=== PATIENT | male | born 1990 | race Caucasian/White ===

== ENCOUNTER 2016-08-07 15:57 | Inpatient (IN) | payer OTHER ==
[~2016-08-07] VITALS: Ht 170.2 cm; Wt 54.0 kg
[~2016-08-07 15:57] MED LIST: FERROUS SULFAT325 M1 PO; INSULIN; LEVEMIR FL100 UNIT/M SC; NOVOLOG PE100 UNITS/ SC; OXYCODONE HCL E10 MG PO; OXYCONTIN CR10 MG PO; ZOFRAN ODT4 MG PO; [UNRECOGNIZED DRUG - OTHER] SC; [UNRECOGNIZED DRUG - SUPPLY] SC
[2016-08-07 16:45] VITALS: BP 127/79
[2016-08-08 03:19] VITALS: BP 148/90
[2016-08-08 06:42] VITALS: BP 131/91
[2016-08-08 10:46] VITALS: BP 149/98
--- NOTE | 2016-08-08 10:50 | History & Physical Report ---
Information Source Information Source: Self Reliability: Good History Chief Complaint NAUSEA AND VOMITING History of Present Illness Patient is a 26 year old male with a pmh of diabetes type 1 and opioid abuse. Patient is currently homeless and does not have access to regular insulin. Patient additionally does not have the means to affor his insulin either. Patient in this instance went off his insulin for 2 days and the patient started to develop symptoms that in the past were cues that his blood sugars were becoming increasingly elevated. Patient started to develop sever nausea and vomiting and eventually abdominal pain. Patient was brought to [facility] where the patient was seen to have a blood sugar of 800, with ketone bodies. Patient was treated with insulin drip and iv fluids. Due to lack of medical beds the patient was transferred to [facility]. Patient upon arrival was found to have a blood sugar of 260 and was on 10 units of insulin. As per our own insulin protocol patient was able to reduce his insulin requirment and currently blood sugar is seen to be 160. Patient History 1. DKA (diabetic ketoacidoses) 2. Nausea 3. Illicit drug use Social History Patient is currently homeless, estranged from family. He does not drink but does smoke cigarettes and has a history of opioid abuse for which he currently claims that he has not used in the recent past few months. Family History Family history was reviewed; no changes noted. Medications and Allergies Medications Home Medications Lantus 20 units qhs Sliding scale coverage with Novolog Current Medications Sig/Ian Start time Last Medication Dose Route Stop Time Status Admin Influenza Virus 0.5 ML 0900 08/08 0900 AC Vaccine IM 08/08 1600 Pantoprazole Sodium 40 MG DAILY@0600 08/08 0600 AC IV Insulin Glargine 20 UNITS QHS 08/07 2100 AC SC Dextrose/Sodium 1,000 ML ASDIRECTED 08/07 1830 AC Chloride/Electrolyt IV Dextrose 25 ML ASDIRECTED PRN 08/07 1815 AC IV Insulin Human Regular 100 UNITS ASDIRECTED 08/07 1815 AC Sodium Chloride 100 ML IV Insulin Human Regular See Dose ASDIRECTED 08/07 1815 AC Insts (1) IV Sodium Chloride 100 ML .FOR AFTER HOURS 08/07 1815 AC IV Enoxaparin Sodium 40 MG QAM 08/07 1800 AC SC Ketorolac 30 MG Q6H PRN 08/07 1800 AC Tromethamine IV Lorazepam 0.5 MG Q4H PRN 08/07 1800 AC IV Morphine Sulfate 1 MG Q4H PRN 08/07 1800 AC IV Dose Instructions: (1)Insulin Human Regular: FOR AFTER HOURS USE TO MIX INSULIN INFUSION ONLY Allergies Coded Allergies: Acetaminophen (From TYLENOL) (Intermediate, NAUSATED AND ITCHY 09/24/15) Review of Systems Constitutional Weakness, Malaise. Denies: Fever, Chills, Sweats, Other. Eyes Denies: Pain, Vision Change, Conjunctival Inflammation, Eyelid Inflammation, Redness, Other. ENT Denies: Ear Pain, Ear Discharge, Nose Pain, Nasal Discharge, Nasal Congestion, Mouth Pain, Mouth Swelling, Throat Pain, Throat Swelling, Other. Respiratory Denies: Cough, Dry, SOB w/exertion, Wheezing, Hemoptysis, Pleuritic Pain, Sputum , Other. Cardiovascular Denies: Chest Pain, Palpitations, Orthopnea, PND, Edema, Light-headedness, Other. Gastrointestinal Nausea, Vomiting, Abdominal Pain. Denies: Diarrhea, Constipation, Melena, Hematochezia, Other. Genitourinary Denies: Dysuria, Frequency, Incontinence, Hematuria, Retention, Other. Musculoskeletal Denies: Neck Pain, Shoulder Pain, Arm Pain, Back Pain, Hand Pain, Leg Pain, Foot Pain, Other. Skin Other (chronic dry skin dermatitis ). Denies: Rash, Lesions, Jaundice, Bruising. Neurological Denies: Weakness, Numbness, Incoordination, Change in speech, Confusion, Seizures, Other. Physical Exam Vital Signs / I&Os Vital Signs Date Time Temp Pulse Resp B/P Pulse O2 O2 Flow FiO2 Ox Delivery Rate 08/07 1645 98.2 102 18 127/79 100 Room Air General Appearance Alert, Oriented X3, No acute distress HEENT Normal exam, EOMI, Moist mucous membranes Lungs Clear to auscultation, Normal air movement Cardiovascular Regular rate and rhythm, Normal S1 and S2, No murmurs, gallops, rubs Abdomen Soft, No tenderness, No guarding Extremities No clubbing, No edema, Normal pulses, No tenderness, Strength = upper ext's Skin - evidence of ichthyosis vulgaris Neurological Normal exam, Normal speech, Normal tone, Sensation intact, Reflexes 2+ and equal, Cranial nerves intact, No lateralizing signs Psych/Mental Status Mental status normal, Mood normal, Confused LAB Results Laboratory Tests 08/07 08/08 1730 0450 Chemistry Plasma Sodium (136 - 145 mmol/L) 138 137 Plasma Potassium (3.5 - 5.1 mmol/L) 3.9 4.1 Plasma Chloride (98 - 107 mmol/L) 101 102 CO2 (Enzymatic) (21 - 32 mmol/L) 28 25 BUN (7 - 18 mg/dL) 19 21 Creatinine (0.6 - 1.3 mg/dL) 1.1 0.8 Est GFR ( Amer) (mL/min) >60 >60 Est GFR (Non-Af Amer) (mL/min) >60 >60 Glucose (70 - 110 mg/dL) 184 231 Plasma Calcium (8.5 - 10.1 mg/dL) 7.7 7.7 Plasma Magnesium (1.8 - 2.4 mg/dL) 2.2 Total Bilirubin (0.0 - 1.0 mg/dL) 0.3 0.2 AST (15 - 37 U/L) 630 527 ALT (12 - 78 U/L) 676 566 Alkaline Phosphatase (46 - 116 U/L) 222 204 Total Protein (6.4 - 8.2 g/dL) 6.5 5.9 Albumin (3.3 - 5.0 g/dL) 2.5 2.2 Hematology WBC (4.5 - 11.5 K/uL) 3.9 RBC (4.50 - 5.90 M/uL) 3.23 Hgb (13.5 - 17.5 gm/dL) 7.3 Hct (41.0 - 53.0 %) 23.2 MCV (80 - 100 fL) 72 MCH (26 - 34 pg) 23 RDW (11.6 - 14.8 %) 19.2 Neut % (Auto) (50 - 75 %) 51.0 Lymph % (Auto) (25 - 40 %) 38.0 [place] % (Auto) (3 - 14 %) 8.6 Eos % (Auto) (0 - 4 %) 1.5 Baso % (Auto) (0 - 2 %) 0.9 Plt Count, EDTA (150 - 400 K/uL) 346 PUBS MCHC (31 - 37 g/dL) 32 Microbiology Date/Time Procedure - Status Source Growth 08/08 0001 MRSA Screen - RECD NASAL 08/07 2144 Escherichia coli Shiga Toxins EIA - RECD STOOL 03/07 2145 Campylobacter Culture - RECD STOOL 08/07 2144 Salmonella/Shigella Culture - RECD STOOL 08/07 2144 Clostridium difficile Toxin A & B - COMP STOOL 08/07 2144 Specimen Source - COMP STOOL 08/07 2144 Stool Leukocytes - COMP STOOL Assessment and Plan Problem List 1. DKA (diabetic ketoacidoses) Plan - pt was seen to have DKA at [facility], patient had evidence of acidosis, low bicorbonate and elevated anion gap - Patient was treated with insulin drip and subsequently his anion gap closed and the low bicarbonate resolved - Patient upon arrival to [facility], patients blood sugars were relatively normalized- 260 and patients electrolytes defiencies were corrected - patient was initially on insulin drip at 10 units per hour on arrival, patient when his blood sugar was 265 was placed on .5 units per hour and switched to D5NS - Pt was startd on his home dose of insulin and his blood sugars remained relatively stable overnight - Pt additionally was consuming a lot of carbohydrates so his blood sugars have been occassionally inconsistent 2. Diabetes Plan - will resume lantus 25 units qhs - sliding scale coverage during the day - carb consistent meals 3. Arm pain Plan - resolved 4. Illicit drug use Status Chronic Onset Date Unknown Plan - pt swears that he has not been using heroin recently - unsure to as whether that is true due to inconclusive drug screen 5. Anemia Status Chronic Onset Date Unknown Plan - patient has not been taking his iron supplementation appropriately - pt asked to resume iron and to follow up with his pmd
[2016-08-08] MEDS ORDERED: FERROUS SULFAT325 M1 PO (14:34)
[2016-08-08] MEDS ORDERED: LEVEMIR FL100 UNIT/M SC (14:34)
[2016-08-08] MEDS ORDERED: NOVOLOG PE100 UNITS/ SC (14:34)
[2016-08-08] MEDS ORDERED: [UNRECOGNIZED DRUG - SUPPLY] SC (14:36)
[2016-08-08] MEDS ORDERED: [UNRECOGNIZED DRUG - OTHER] SC (14:37)
[2016-08-08] MEDS ORDERED: [UNRECOGNIZED DRUG - SUPPLY] SC (14:38)
[2016-08-08] MEDS ORDERED: [UNRECOGNIZED DRUG - SUPPLY] SC (14:39)
[2016-08-08] MEDS ORDERED: OXYCODONE HCL E10 MG PO (14:40)
--- NOTE | 2016-08-08 14:44 | Provider's Discharge Care Plan ---
Problem, Goal, Plan Problem List 1. DKA (diabetic ketoacidoses) Instructions: Take meds as directed, - follow up with your pmd 2. Diabetes Instructions: Take meds as directed, -stick to low carb diet if possible 3. Emesis, persistent Instructions: - keep blood sugars under control
--- NOTE | 2016-08-08 15:15 | Progress Note ---
Subjective General Pt seen and examined. Patients blood sugars have normalized overnight and patient is no longer in DKA. Patient will be discharged later today. Constitutional Denies: Fever, Chills, Sweats, Weakness, Malaise, Other. Eyes Denies: Pain, Vision Change, Conjunctival Inflammation, Eyelid Inflammation, Redness, Other. ENT Denies: Ear Pain, Ear Discharge, Nose Pain, Nasal Discharge, Nasal Congestion, Mouth Pain, Mouth Swelling, Throat Pain, Throat Swelling, Other. Respiratory Denies: Cough, Dry, SOB w/exertion, Wheezing, Hemoptysis, Pleuritic Pain, Sputum , Other. Cardiovascular Denies: Chest Pain, Palpitations, Orthopnea, PND, Edema, Light-headedness, Other. Gastrointestinal Abdominal Pain. Denies: Nausea, Vomiting, Diarrhea, Constipation, Melena, Hematochezia, Other. Genitourinary Denies: Dysuria, Frequency, Incontinence, Hematuria, Retention, Other. Musculoskeletal Denies: Neck Pain, Shoulder Pain, Arm Pain, Back Pain, Hand Pain, Leg Pain, Foot Pain, Other. Skin Denies: Rash, Lesions, Jaundice, Bruising, Other. Neurological Denies: Weakness, Numbness, Incoordination, Change in speech, Confusion, Seizures, Other. Physical Exam Vital Signs / I&Os Vital Signs Date Time Temp Pulse Resp B/P Pulse O2 O2 Flow FiO2 Ox Delivery Rate 08/08 1046 98.4 92 18 149/98 100 Room Air 08/08 0642 98.2 93 18 131/91 100 Room Air 08/08 0319 97.5 92 18 148/90 100 Room Air 08/07 1645 98.2 102 18 127/79 100 Room Air I&O 08/07 0800 08/07 1600 08/08 0000 Intake Total Output Total 550 Balance -550 General Appearance Alert, Oriented X3, No acute distress HEENT Normal exam, PERRLA, EOMI, Moist mucous membranes Lungs Clear to auscultation, Normal air movement Neck No JVD, No masses, No thyromegaly, No lymphadenopathy, 2+ carotid pulse wo bruit Cardiovascular Regular rate and rhythm, Normal S1 and S2 Abdomen Soft, No tenderness, No guarding, No rebound Extremities No cyanosis, No clubbing, No edema, Normal pulses, No tenderness, Strength = upper ext's, Strength = lower ext's Skin No Breakdown, No Significant Lesions Neurological Normal speech, Normal tone, Sensation intact, Cranial nerves intact , Strength 5/5 x4 ext's LAB Results Laboratory Tests 08/07 08/08 1730 0450 Chemistry Plasma Sodium (136 - 145 mmol/L) 138 137 Plasma Potassium (3.5 - 5.1 mmol/L) 3.9 4.1 Plasma Chloride (98 - 107 mmol/L) 101 102 CO2 (Enzymatic) (21 - 32 mmol/L) 28 25 BUN (7 - 18 mg/dL) 19 21 Creatinine (0.6 - 1.3 mg/dL) 1.1 0.8 Est GFR ( Amer) (mL/min) >60 >60 Est GFR (Non-Af Amer) (mL/min) >60 >60 Glucose (70 - 110 mg/dL) 184 231 Plasma Calcium (8.5 - 10.1 mg/dL) 7.7 7.7 Plasma Magnesium (1.8 - 2.4 mg/dL) 2.2 Total Bilirubin (0.0 - 1.0 mg/dL) 0.3 0.2 AST (15 - 37 U/L) 630 527 ALT (12 - 78 U/L) 676 566 Alkaline Phosphatase (46 - 116 U/L) 222 204 Total Protein (6.4 - 8.2 g/dL) 6.5 5.9 Albumin (3.3 - 5.0 g/dL) 2.5 2.2 Hematology WBC (4.5 - 11.5 K/uL) 3.9 RBC (4.50 - 5.90 M/uL) 3.23 Hgb (13.5 - 17.5 gm/dL) 7.3 Hct (41.0 - 53.0 %) 23.2 MCV (80 - 100 fL) 72 MCH (26 - 34 pg) 23 RDW (11.6 - 14.8 %) 19.2 Neut % (Auto) (50 - 75 %) 51.0 Lymph % (Auto) (25 - 40 %) 38.0 [place] % (Auto) (3 - 14 %) 8.6 Eos % (Auto) (0 - 4 %) 1.5 Baso % (Auto) (0 - 2 %) 0.9 Plt Count, EDTA (150 - 400 K/uL) 346 PUBS MCHC (31 - 37 g/dL) 32 Microbiology Date/Time Procedure - Status Source Growth 08/08 0001 MRSA Screen - RECD NASAL 08/07 2144 Escherichia coli Shiga Toxins EIA - RECD STOOL 08/07 2144 Campylobacter Culture - RECD STOOL 08/07 2144 Salmonella/Shigella Culture - RECD STOOL 08/07 2144 Clostridium difficile Toxin A & B - COMP STOOL 08/07 2144 Specimen Source - COMP STOOL 08/07 2144 Stool Leukocytes - COMP STOOL Assessment and Plan Problem List 1. DKA (diabetic ketoacidoses) Plan - resolved - blood sugars are down to patients baseline - the aberrations in consistency are secondary to increased po intake on the patients behalf 2. Diabetes Plan - pt will be discharged with prescriptions for lantus 20 units qhs as well as novolog 8 units TID - pt will follow up with his pmd - arrangements have been made for patient to get an appointment 3. Emesis, persistent Plan - resolved
--- NOTE | 2016-08-08 15:17 | Discharge Summary ---
Discharge Summary Report Admit Date 08/07/16 Discharge Date 08/08/16 Admission Diagnosis DKA Discharge Diagnosis DKA resolved Brief History Patient is a 26 year old male with a pmh of diabetes type 1 and opioid abuse. Patient is currently homeless and does not have access to regular insulin. Patient additionally does not have the means to affor his insulin either. Patient in this instance went off his insulin for 2 days and the patient started to develop symptoms that in the past were cues that his blood sugars were becoming increasingly elevated. Patient started to develop sever nausea and vomiting and eventually abdominal pain. Patient was brought to [facility] where the patient was seen to have a blood sugar of 800, with ketone bodies. Patient was treated with insulin drip and iv fluids. Due to lack of medical beds the patient was transferred to [facility]. Patient upon arrival was found to have a blood sugar of 260 and was on 10 units of insulin. As per our own insulin protocol patient was able to reduce his insulin requirment and currently blood sugar is seen to be 160. Hospital Course Patient was admitted seen to have relatively normal blood sugars. Labs were obtained and patients anion gap closed and his bicarbonate returned to normal. Patient was treated with his home dose of insulin and patient was able to show that he can achieve normal blood sugars. Patient at this time is stable for discharge. Patient recieved prescriptions for all his insulin supplies, had appointments made for prescription refills, and was given resources to help with his lack of housing. Patient claimed that he would be amenable to pursuing everything we have arranged for him. General Appearance Alert, Oriented X3, No acute distress HEENT PERRLA, EOMI, Mucous membran moist/pink Lungs Normal air movement Cardiovascular Normal S1, Normal S2, No murmurs Abdomen Soft, No hepatospenomegaly, No masses Skin No Breakdown, No Significant Lesions Lab/Imaging Laboratory Tests 08/07 08/08 1730 0450 Chemistry Plasma Sodium (136 - 145 mmol/L) 138 137 Plasma Potassium (3.5 - 5.1 mmol/L) 3.9 4.1 Plasma Chloride (98 - 107 mmol/L) 101 102 CO2 (Enzymatic) (21 - 32 mmol/L) 28 25 BUN (7 - 18 mg/dL) 19 21 Creatinine (0.6 - 1.3 mg/dL) 1.1 0.8 Est GFR ( Amer) (mL/min) >60 >60 Est GFR (Non-Af Amer) (mL/min) >60 >60 Glucose (70 - 110 mg/dL) 184 231 Plasma Calcium (8.5 - 10.1 mg/dL) 7.7 7.7 Plasma Magnesium (1.8 - 2.4 mg/dL) 2.2 Total Bilirubin (0.0 - 1.0 mg/dL) 0.3 0.2 AST (15 - 37 U/L) 630 527 ALT (12 - 78 U/L) 676 566 Alkaline Phosphatase (46 - 116 U/L) 222 204 Total Protein (6.4 - 8.2 g/dL) 6.5 5.9 Albumin (3.3 - 5.0 g/dL) 2.5 2.2 Hematology WBC (4.5 - 11.5 K/uL) 3.9 RBC (4.50 - 5.90 M/uL) 3.23 Hgb (13.5 - 17.5 gm/dL) 7.3 Hct (41.0 - 53.0 %) 23.2 MCV (80 - 100 fL) 72 MCH (26 - 34 pg) 23 RDW (11.6 - 14.8 %) 19.2 Neut % (Auto) (50 - 75 %) 51.0 Lymph % (Auto) (25 - 40 %) 38.0 [place] % (Auto) (3 - 14 %) 8.6 Eos % (Auto) (0 - 4 %) 1.5 Baso % (Auto) (0 - 2 %) 0.9 Plt Count, EDTA (150 - 400 K/uL) 346 PUBS MCHC (31 - 37 g/dL) 32 Microbiology Date/Time Procedure - Status Source Growth 08/08 0001 MRSA Screen - RECD NASAL 08/07 2144 Escherichia coli Shiga Toxins EIA - RECD STOOL 08/07 2144 Campylobacter Culture - RECD STOOL 08/07 2144 Salmonella/Shigella Culture - RECD STOOL 08/07 2144 Clostridium difficile Toxin A & B - COMP STOOL 08/07 2144 Specimen Source - COMP STOOL 08/07 2144 Stool Leukocytes - COMP STOOL Discharge Instructions/Meds - follow up with your pmd - take medications as prescribed
== END 2016-08-08 15:00 | disposition home or self-care (01) | DRG 420 ==
LOC: TRANS SRH 15:57 → CC SRH 16:39 → TRANS SRH 16:39 → CC SRH 16:39
PROVIDERS: ADMIT Internal Medicine
PROC: 3E0234Z Introduction of Serum, Toxoid and Vaccine into Muscle, Percutaneous Approach (ICD-10-PCS; principal; 2016-08-08)
DX: E10.10 Type 1 diabetes mellitus with ketoacidosis without coma (principal); R11.2 Nausea with vomiting, unspecified; T38.3X6A Underdosing of insulin and oral hypoglycemic [antidiabetic] drugs, initial encounter; Z91.120 Patient's intentional underdosing of medication regimen due to financial hardship; Z23 Encounter for immunization; D50.9 Iron deficiency anemia, unspecified; F11.10 Opioid abuse, uncomplicated; Z59.0 Homelessness
CPT/HCPCS: 29257; 90098; 90100; 90112; 90455; 91672; 92132; 92720; 95059; 99262

== ENCOUNTER 2016-10-15 16:52 | Inpatient (IN) | payer OTHER ==
[~2016-10-15] VITALS: Ht 170.2 cm; Wt 55.5 kg
[~2016-10-15 16:52] MED LIST changes: +[UNRECOGNIZED DRUG - OTHER] SC; +[UNRECOGNIZED DRUG - SUPPLY] SC; +[UNRECOGNIZED DRUG - SUPPLY] SC; +[UNRECOGNIZED DRUG - SUPPLY] SC
[2016-10-15 17:32] VITALS: BP 157/100
[2016-10-15 19:00] VITALS: BP 126/75
[2016-10-15 20:05] VITALS: BP 108/59
--- NOTE | 2016-10-15 20:08 | Progress Note ---
Subjective General Admission History and Physical Examination Patient Name: Brendan Bowie Patient ID: [id number] Admission Date: October 15, 2016 Primary Care Provider: Krishan Attending Physician: Nehemias Kahn M.D. Admitting Physician: Nirav Cabrera M.D. 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 Abdominal pain Coughing History of Present Illness: This is a 26 year old male with a pmh of diabetes type 1, opioid abuse and homeless. Patient seen earlier today at [facility] ER. Patient is limited resources and therefore his insulins are not available on a consistent basis. Patient ended up going into the [facility] emergency department. Patient was found there to have a blood sugar of 1000 1200. However, not seemingly in ketoacidosis. Bicarbonate was in the 20s. Undetermined ketones. Patient appeared to be dehydrated and unkept. Due to limitations in [facility]. Patient was subsequently transferred to [facility] for inpatient care. Patient is transfered to the [facility] CCU on insulin drip. Upon arrival, patient had blood sugars of 320. Insulin rate of 10. Patient was admitted with hyper glycemia, hyper ketosis and dehydration. Patient is admitted to CCU observation. He states he has not felt well, not eating well. Patient has productive cough. Patient does have a history of smoking use and uses marijuana. Previous opioid use. Patient has minimal resource. Therefore, his inability to monitor his blood sugars is been less than adequate. Patient has reports of recent nausea and vomiting. Patient also reported of abdominal pain. Patient upon arrival was found to have a blood sugar of 320 and was on 10 units of insulin. Her insulin protocol p insulin rate was reduced to 5 units IV per hour. Recheck insulin and one hour. PAST MEDICAL HISTORY Illnesses: Insulin-dependent diabetes. 1 Hypertension Hyperlipidemia Back pain Homeless Allergies: NKDA Medications: Lantus 20 units SC Humalog sliding scale Surgery: Right arm Hospitalizations: 2015. Diabetic ketoacidosis August diabetic ketoacidosis FAMILY HISTORY Parents: 1. Father, hypercholesterol, hypertension 2. Mother: Unsure of medical history SOCIAL HISTORY 1. Marital Status: Single 2. Congregation: unknown 3. Education: unknown 4. Employment History: Disability 5. Occupational health exposures: Unknown HABITS 1. Tobacco: Patient smoked intermittently over the past 25 years, currently smoking 1.5 ppd. 2. Drugs: hx of opiod use and marijuana 3. Alcohol: Unknown 4. Caffeine: coffee HEALTH SUPERVISION Item/Test unknown 1. PCP, unknown IMMUNIZATIONS: Up-to-date ADVANCED DIRECTIVES: 1. Advanced directive; none 2. POLST: None 3. Code Status: FULL CODE; call father 4. Durable Power; Not known 5. Donor card: Unknown REVIEW OF SYSTEMS Remarkable for those things stated in the history of present illness and past medical history. Seventeen point review of system completed with the following notable findings: Constitutional Weakness, Malaise. Denies: Chills, Sweats. Eyes Denies: Vision Change. ENT Denies: Ear Discharge, Nasal Discharge, Throat Pain. Respiratory Denies: SOB w/exertion, Wheezing. Cardiovascular Denies: Palpitations, PND, Edema. Gastrointestinal Nausea, Abdominal Pain. Denies: Diarrhea, Hematochezia. Genitourinary Other (dysuria). Musculoskeletal Denies: Arm Pain. Neurological Denies: Change in speech, Confusion, Seizures. Physical Exam Vital Signs / I&Os Vital Signs Date Time Temp Pulse Resp B/P Pulse O2 O2 Flow FiO2 Ox Delivery Rate 10/15 2210 94 12 112/62 10/15 2112 104 12 103/73 10/15 2049 97 10/15 204 Room Air 10/15 2004 109 14 108/59 100 10/15 1900 101 16 126/75 100 10/15 1735 97.7 10/16 1731 98 20 157/100 General Appearance Oriented X3, Cooperative, Thin, frail, unkept bearded HEENT Atraumatic, EOMI Lungs Clear to auscultation, Normal air movement Neck No JVD, No masses Cardiovascular Regular rate and rhythm, Normal S1 and S2 Abdomen Soft, No tenderness Extremities Normal pulses, No tenderness Skin No Rashes, No Breakdown, scarring noted in the upper extremity. Neurological Normal speech Psych/Mental Status Mood normal LAB Results Laboratory Tests 10/15 Chemistry Phosphorus (2.5 - 4.9 mg/dL) 3.0 Prealbumin Pending Amylase (25 - 115 U/L) 7 Hematology WBC (4.5 - 11.5 K/uL) 9.3 RBC (4.50 - 5.90 M/uL) 4.52 Hgb (13.5 - 17.5 gm/dL) 11.1 Hct (41.0 - 53.0 %) 33.4 MCV (80 - 100 fL) 74 MCH (26 - 34 pg) 25 RDW (11.6 - 14.8 %) 17.3 Neut % (Auto) (50 - 75 %) 60.7 Lymph % (Auto) (25 - 40 %) 31.1 [place] % (Auto) (3 - 14 %) 6.4 Eos % (Auto) (0 - 4 %) 1.0 Baso % (Auto) (0 - 2 %) 0.8 Plt Count, EDTA (150 - 400 K/uL) 330 PUBS MCHC (31 - 37 g/dL) 33 Toxicology Acetone, Qual (NEGATIVE) Pending Urine Acetone Level (NEGATIVE) Pending Microbiology Date/Time Procedure - Status Source Growth 10/15 2029 Blood Culture - RECD BLOOD 10/15 1953 Blood Culture - ORD BLOOD 10/16 1739 MRSA Screen - RECD NASAL Assessment and Plan Problem List 1. Diabetes Plan Diabetic transfer from [facility] emergency Department. (Patient is homeless and stopped using insulin due to exhausted resources). Patient was found initially with a CO2 of 15. Not necessarily in DKA with a bicarbonate 23. Ketone bodies were minimal. Patient was started on a 10 unit per hour drip of insulin. This was titrated down with responding blood sugars. The patient was given his Lantus 10 units 1 this evening. Patient was fed. K and phosphates were reviewed and evaluated. Labs including CBC, CMP, as phosphate pre-Albumin Appears to be malnourished. Ordering a nutritional consult plus physical therapy in the AM 2. Nausea Plan Nausea admission. Likely related to elevated blood sugars. Patient's mental status was normal. We'll give ondansetron as needed. 3. Nicotine dependence Status Chronic Onset Date Unknown Plan Provide patient with tobacco cessation programs Nicotine patch was placed. 4. Dehydration Plan Dehydration is prominent, Given the Poor dietary factors, less than adequate diet. TI one half normal saline at 50 cc an hour. Normalized blood sugars Follow potassium phosphate levels. Maintain insulin drip until her sugars at 150, stop the drip. Continue with the D5 normal saline. Increase by mouth intake Lantus, 20 units tonight Hemoglobin A1c, lipid profile Current status: Guarded, unstable Anticipated discharge date: Anticipated discharge in 2-3 day Anticipated discharge placement: Home Patient care time: Time spent in chart review, patient interview, physical exam, CPOE, and care documentation: 70 minutes Visit to patient today: 1 Complexity of care: moderate Initial patient evaluation: Emergency department DVT prophylaxis: Mechanical; GI ppx , pantoprazole 40 mg IV DVT Lovenox 40 mg sc E&M Codes Admission: Obsv-Comp/High/[id number]
[2016-10-15 21:13] VITALS: BP 103/73
--- NOTE | 2016-10-15 21:58 | DIAGNOSTIC IMAGING REPORT ---
PROCEDURE: XR CHEST 1 VIEW INDICATION: cough with sputum production TECHNIQUE: Single view chest. 2015 hours COMPARISON: None FINDINGS: Cardiomediastinal contour and central vessels are normal. Lungs demonstrate mildly coarse interstitial markings but no focal consolidation, effusion, or pneumothorax. Osseous structures are intact. IMPRESSION: 1. No acute process. 2. Coarse interstitial markings raising possibility of early emphysema.
[2016-10-15 22:11] VITALS: BP 112/62
[2016-10-15 23:10] VITALS: BP 126/64
[2016-10-16] VITALS (23 sets, daily range): BP systolic 113–160; BP diastolic 57–98
--- NOTE | 2016-10-16 07:15 | Progress Note ---
Subjective General This is a 26 year old male with a pmh of diabetes type 1, opioid abuse and homeless. Patient seen earlier today at [facility] ER. Patient is limited resources and therefore his insulins are not available on a consistent basis. Patient ended up going into the [facility] emergency department. Patient was found there to have a blood sugar of 1000 1200. However, not seemingly in ketoacidosis. Bicarbonate was in the 20s. Undetermined ketones. Patient appeared to be dehydrated and unkept. Due to limitations in [facility]. Patient was subsequently transferred to [facility] for inpatient care. Patient is transfered to the [facility] CCU on insulin drip. Upon arrival, patient had blood sugars of 320. Insulin rate of 10. Patient was admitted with hyper glycemia, hyper ketosis and dehydration. Patient is admitted to CCU observation. Still has back pain and Abd. Pain, but controlled, no nausea vomiting, had BM yesterday, no fever chills, no cp or dyspnea, ROS: GI: positive for Abd. pain, negative for nausea, vomiting MKS: positive for back pain Constitional: negative for fever, chills Physical Exam Vital Signs / I&Os Vital Signs Date Time Temp Pulse Resp B/P Pulse O2 O2 Flow FiO2 Ox Delivery Rate 10/16 0611 85 11 137/87 98 Room Air 10/16 0510 97.7 89 15 128/73 98 10/16 0400 89 10 116/61 98 Room Air 10/16 0310 93 12 113/67 99 Room Air 10/16 0210 97.7 84 11 128/79 98 Room Air 10/16 0100 122/69 10/16 0010 88 11 114/57 98 10/15 2310 97.7 94 14 126/64 100 Room Air 10/15 2211 94 12 112/62 10/153 104 12 103/73 10/15 2050 97 10/15 2045 Room Air 10/15 2005 109 14 108/59 100 10/15 1900 101 16 126/75 100 10/15 1735 97.7 10/15 1732 98 20 157/100 I&O 10/16 0000 10/15 1600 10/15 0800 Intake Total 600 Output Total 1150 Balance -550 General Appearance No acute distress Lungs Clear to auscultation Cardiovascular Regular rate and rhythm, Normal S1 and S2, No murmurs, gallops, rubs Abdomen Soft, tendern, Bowel sounds hypoactive Extremities No edema Skin No Significant Lesions (chronic skin changes in legs) Neurological Normal speech Psych/Mental Status Mental status normal Assessment and Plan Problem List 1. Diabetes Plan patient is in process of getting perperal IV, switch the IV insulin to high level sliding scale 2. Dehydration Plan much better with IV hydration 3. Anemia Status Chronic Onset Date Unknown Plan stable will monitor 4. Emesis, persistent Plan controlled now 5. Abnormal TSH Plan will check Free T4
--- NOTE | 2016-10-16 07:15 | Progress Note ---
Subjective General This is a 26 year old male with a pmh of diabetes type 1, opioid abuse and homeless. Patient seen earlier today at [facility] ER. Patient is limited resources and therefore his insulins are not available on a consistent basis. Patient ended up going into the [facility] emergency department. Patient was found there to have a blood sugar of 1000 1200. However, not seemingly in ketoacidosis. Bicarbonate was in the 20s. Undetermined ketones. Patient appeared to be dehydrated and unkept. Due to limitations in [facility]. Patient was subsequently transferred to [facility] for inpatient care. Patient is transfered to the [facility] CCU on insulin drip. Upon arrival, patient had blood sugars of 320. Insulin rate of 10. Patient was admitted with hyper glycemia, hyper ketosis and dehydration. Patient is admitted to CCU observation. Still has back pain and Abd. Pain, but controlled, no nausea vomiting, had BM yesterday, no fever chills, no cp or dyspnea, ROS: GI: positive for Abd. pain, negative for nausea, vomiting MKS: positive for back pain Constitional: negative for fever, chills Physical Exam Vital Signs / I&Os Vital Signs Date Time Temp Pulse Resp B/P Pulse O2 O2 Flow FiO2 Ox Delivery Rate 10/16 0611 85 11 137/87 98 Room Air 10/16 0510 97.7 89 15 128/73 98 10/16 0400 89 10 116/61 98 Room Air 10/16 0310 93 12 113/67 99 Room Air 10/16 0210 97.7 84 11 128/79 98 Room Air 10/16 0100 122/69 10/16 0010 88 11 114/57 98 10/15 2310 97.7 94 14 126/64 100 Room Air 10/15 2211 94 12 112/62 10/153 104 12 103/73 10/15 2050 97 10/15 2045 Room Air 10/15 2005 109 14 108/59 100 10/15 1900 101 16 126/75 100 10/15 1735 97.7 10/15 1732 98 20 157/100 I&O 10/16 0000 10/15 1600 10/15 0800 Intake Total 600 Output Total 1150 Balance -550 General Appearance No acute distress Lungs Clear to auscultation Cardiovascular Regular rate and rhythm, Normal S1 and S2, No murmurs, gallops, rubs Abdomen Soft, tendern, Bowel sounds hypoactive Extremities No edema Skin No Significant Lesions (chronic skin changes in legs) Neurological Normal speech Psych/Mental Status Mental status normal Assessment and Plan Problem List 1. Diabetes Plan patient is in process of getting perperal IV, switch the IV insulin to high level sliding scale 2. Dehydration Plan much better with IV hydration 3. Anemia Status Chronic Onset Date Unknown Plan stable will monitor 4. Emesis, persistent Plan controlled now 5. Abnormal TSH Plan will check Free T4
[2016-10-16] MEDS ORDERED: NOVOLOG PE100 UNITS/ SC (07:24)
[2016-10-16] MEDS ORDERED: OXYCODONE HCL E10 MG PO (07:24)
--- NOTE | 2016-10-16 16:31 | DIAGNOSTIC IMAGING REPORT ---
PROCEDURE: XR CHEST 1 VIEW INDICATION: CENTRAL LINE PLACEMENT TECHNIQUE: Portable AP view 04:06 p.m. COMPARISON: Chest 10/15/2016 FINDINGS: Lungs are clear. Heart and mediastinum are normal. Thorax is normal. The tip of the central line is in the superior vena cava. There is no pneumothorax. IMPRESSION: 1. Central line tip in the superior vena cava. No pneumothorax Results were called to the floor at 7753
--- NOTE | 2016-10-16 16:32 | OPERATIVE REPORT ---
DATE OF SURGERY: 10/16/2016 SURGEON: Juan F Aly MD PREOPERATIVE DIAGNOSIS: 1. Intravenous access need POSTOPERATIVE DIAGNOSIS: 1. Intravenous access need PROCEDURE PERFORMED: 1. Left subclavian central line placement ANESTHESIA: Local. INDICATIONS: The patient is a 26-year-old man with diabetic ketoacidosis. He had a failed right IJ line and had only a lower extremity IV in his foot. Central line was requested. The patient was given informed consent prior to placement of the line and signed the appropriate consent form. He was told about complications such as hemopneumothorax, central line infections and others. He was aware of this because he had undergone a previous central line at another institution where he had a pneumothorax. He agreed to undergo the surgery as described. SURGICAL TECHNIQUE: The patient was treated in the ICU. He was placed in steep Trendelenburg position with the head turned to the right. The left chest was sterilely prepped and draped. A 1% plain Xylocaine was infiltrated and the vein accessed on first pass with an 18 gauge thin-walled needle. Seldinger technique was used to place a dilator, followed by the triple-lumen catheter into the subclavian vein. The catheter was checked, and there was both withdraw and flush at all ports. The catheter was sutured with the enclosed suture material, and an antibacterial cuff was placed at the insertion site. Dressings were applied and a chest x-ray ordered. The patient tolerated the procedure well and appeared to suffer no ill effects.
[2016-10-17] VITALS (23 sets, daily range): BP systolic 127–178; BP diastolic 81–107
--- NOTE | 2016-10-17 06:44 | Progress Note ---
Subjective General This is a 26 year old male with a pmh of diabetes type 1, opioid abuse and homeless. Patient seen earlier today at [facility] ER. Patient is limited resources and therefore his insulins are not available on a consistent basis. Patient ended up going into the [facility] emergency department. Patient was found there to have a blood sugar of 1000 1200. However, not seemingly in ketoacidosis. Bicarbonate was in the 20s. Undetermined ketones. Patient appeared to be dehydrated and unkept. Due to limitations in [facility]. Patient was subsequently transferred to [facility] for inpatient care. Patient is transfered to the [facility] CCU on insulin drip. Upon arrival, patient had blood sugars of 320. Insulin rate of 10. Patient was admitted with hyper glycemia, hyper ketosis and dehydration. Patient is admitted to CCU observation. Able to eat and drink, still has abdominal pain, but c/o diarrhea 5-6 times loos stool all night alonge, no fever or chills, state his anemia is chronic and required transfusion in the past, also has painful localized koko in left hand with tenderness and arythema Review of system: GI: Positive for abdominal pain and diarrhea Constitutional: Negative for fever or chills MK S: Positive for swelling and pain in left hand Physical Exam Vital Signs / I&Os Vital Signs Date Time Temp Pulse Resp B/P Pulse O2 O2 Flow FiO2 Ox Delivery Rate 10/17 0613 87 15 149/88 10/17 0520 88 13 153/96 10/17 0416 93 13 142/95 10/17 0314 90 17 160/90 10/17 0204 97.5 82 10 145/92 99 Room Air 10/17 0111 87 10 127/85 97 Room Air 10/17 0011 98 21 152/89 98 Room Air 10/16 2357 102 10/16 2318 94 14 142/87 98 Room Air 10/16 2232 98.4 10/16 2205 92 16 134/88 10/16 2114 105 16 156/92 10/17 2019 103 10/16 2000 100 16 154/98 10/16 1944 Room Air 10/16 1916 97 15 154/95 10/16 1812 98.4 108 15 160/88 10/16 1711 110 15 149/97 10/16 1610 101 17 136/81 10/16 1513 101 14 130/79 10/16 1322 105 14 141/86 98 Room Air 10/16 1200 104 14 147/93 98 Room Air 10/16 1105 98.6 98 Room Air 10/16 1100 88 13 143/86 98 Room Air 10/16 1000 92 12 123/78 98 Room Air 10/16 0900 91 11 140/92 98 Room Air 10/16 0800 88 14 153/97 98 Room Air 10/16 0700 98.2 89 16 141/97 98 Room Air I&O 10/17 0000 10/16 1600 10/16 0800 Intake Total 2936 1740 1153 Output Total 850 2825 500 Balance 2661 -1085 653 General Appearance No acute distress Lungs Clear to auscultation Neck Supple Cardiovascular Regular rate and rhythm, Normal S1 and S2, No murmurs, gallops, rubs Abdomen Normal bowel sounds (mildly tender), Soft Extremities localized erythematous edema tender in palpation in left hand starting to have deffuse edema in hand Skin chronic skin changes in legs Psych/Mental Status Mental status normal (mildly agitated) LAB Results Laboratory Tests 10/17 10/17 10/16 10/16 0425 0425 1900 1135 Blood Gas VBG pH (7.31 - 7.41) 7.312 VBG pCO2 at Pat Temp (41 - 51 mmHg) 43.3 VBG pO2 at Pat Temp (24.0 - 40.0 mmHg) 35.2 VBG HCO3 (22.0 - 28.0 mmol/L) 21.9 VBG Total CO2 (25.0 - 29.0 mmol/L) 23.2 VBG O2 Sat (Ariel) (40.0 - 70.0 %) 65.1 Vent Mode YES FiO2 (20 - 101 %) 21 Chemistry Plasma Sodium (136 - 145 mmol/L) 142 Plasma Potassium (3.5 - 5.1 mmol/L) 4.2 Plasma Chloride (98 - 107 mmol/L) 108 CO2 (Enzymatic) (21 - 32 mmol/L) 25 BUN (7 - 18 mg/dL) 20 Creatinine (0.6 - 1.3 mg/dL) 0.8 Est GFR ( Amer) (mL/min) >60 Est GFR (Non-Af Amer) (mL/min) >60 Glucose (70 - 110 mg/dL) 82 740 Plasma Calcium (8.5 - 10.1 mg/dL) 8.2 Free T4 Calculated (0.78 - 4.13 ng/dL) 0.92 Hematology WBC (4.5 - 11.5 K/uL) 6.9 RBC (4.50 - 5.90 M/uL) 3.66 Hgb (13.5 - 17.5 gm/dL) 8.7 Hct (41.0 - 53.0 %) 27.3 MCV (80 - 100 fL) 75 MCH (26 - 34 pg) 24 RDW (11.6 - 14.8 %) 17.6 Neut % (Auto) (50 - 75 %) 73.7 Lymph % (Auto) (25 - 40 %) 19.1 [place] % (Auto) (3 - 14 %) 4.9 Eos % (Auto) (0 - 4 %) 1.7 Baso % (Auto) (0 - 2 %) 0.6 Plt Count, EDTA (150 - 400 K/uL) 246 PUBS MCHC (31 - 37 g/dL) 32 Assessment and Plan Problem List 1. DKA (diabetic ketoacidoses) Plan Resolved off insulin drip, on long acting insulin chaged diet to ADA, also sliding scale 2. Cellulitis of left hand Plan Start Vancomycin IV 3. Diarrhea Plan send stool for work up 4. Anemia Status Chronic Onset Date Unknown Plan check stool for occult blood and check Iron profile anbd B12, folic acid
--- NOTE | 2016-10-17 06:44 | Progress Note ---
Subjective General This is a 26 year old male with a pmh of diabetes type 1, opioid abuse and homeless. Patient seen earlier today at [facility] ER. Patient is limited resources and therefore his insulins are not available on a consistent basis. Patient ended up going into the [facility] emergency department. Patient was found there to have a blood sugar of 1000 1200. However, not seemingly in ketoacidosis. Bicarbonate was in the 20s. Undetermined ketones. Patient appeared to be dehydrated and unkept. Due to limitations in [facility]. Patient was subsequently transferred to [facility] for inpatient care. Patient is transfered to the [facility] CCU on insulin drip. Upon arrival, patient had blood sugars of 320. Insulin rate of 10. Patient was admitted with hyper glycemia, hyper ketosis and dehydration. Patient is admitted to CCU observation. Able to eat and drink, still has abdominal pain, but c/o diarrhea 5-6 times loos stool all night alonge, no fever or chills, state his anemia is chronic and required transfusion in the past, also has painful localized koko in left hand with tenderness and arythema Review of system: GI: Positive for abdominal pain and diarrhea Constitutional: Negative for fever or chills MK S: Positive for swelling and pain in left hand Physical Exam Vital Signs / I&Os Vital Signs Date Time Temp Pulse Resp B/P Pulse O2 O2 Flow FiO2 Ox Delivery Rate 10/17 0613 87 15 149/88 10/17 0520 88 13 153/96 10/17 0416 93 13 142/95 10/17 0314 90 17 160/90 10/17 0204 97.5 82 10 145/92 99 Room Air 10/17 0111 87 10 127/85 97 Room Air 10/17 0011 98 21 152/89 98 Room Air 10/16 2357 102 10/16 2318 94 14 142/87 98 Room Air 10/16 2232 98.4 10/16 2205 92 16 134/88 10/16 2114 105 16 156/92 10/17 2019 103 10/16 2000 100 16 154/98 10/16 1944 Room Air 10/16 1916 97 15 154/95 10/16 1812 98.4 108 15 160/88 10/16 1711 110 15 149/97 10/16 1610 101 17 136/81 10/16 1513 101 14 130/79 10/16 1322 105 14 141/86 98 Room Air 10/16 1200 104 14 147/93 98 Room Air 10/16 1105 98.6 98 Room Air 10/16 1100 88 13 143/86 98 Room Air 10/16 1000 92 12 123/78 98 Room Air 10/16 0900 91 11 140/92 98 Room Air 10/16 0800 88 14 153/97 98 Room Air 10/16 0700 98.2 89 16 141/97 98 Room Air I&O 10/17 0000 10/16 1600 10/16 0800 Intake Total 2936 1740 1153 Output Total 413 2825 500 Balance 2661 -1085 653 General Appearance No acute distress Lungs Clear to auscultation Neck Supple Cardiovascular Regular rate and rhythm, Normal S1 and S2, No murmurs, gallops, rubs Abdomen Normal bowel sounds (mildly tender), Soft Extremities localized erythematous edema tender in palpation in left hand starting to have deffuse edema in hand Skin chronic skin changes in legs Psych/Mental Status Mental status normal (mildly agitated) LAB Results Laboratory Tests 10/17 10/17 10/16 10/16 0425 0425 1900 1135 Blood Gas VBG pH (7.31 - 7.41) 7.312 VBG pCO2 at Pat Temp (41 - 51 mmHg) 43.3 VBG pO2 at Pat Temp (24.0 - 40.0 mmHg) 35.2 VBG HCO3 (22.0 - 28.0 mmol/L) 21.9 VBG Total CO2 (25.0 - 29.0 mmol/L) 23.2 VBG O2 Sat (Ariel) (40.0 - 70.0 %) 65.1 Vent Mode YES FiO2 (20 - 101 %) 21 Chemistry Plasma Sodium (136 - 145 mmol/L) 142 Plasma Potassium (3.5 - 5.1 mmol/L) 4.2 Plasma Chloride (98 - 107 mmol/L) 108 CO2 (Enzymatic) (21 - 32 mmol/L) 25 BUN (7 - 18 mg/dL) 20 Creatinine (0.6 - 1.3 mg/dL) 0.8 Est GFR ( Amer) (mL/min) >60 Est GFR (Non-Af Amer) (mL/min) >60 Glucose (70 - 110 mg/dL) 82 740 Plasma Calcium (8.5 - 10.1 mg/dL) 8.2 Free T4 Calculated (0.78 - 4.13 ng/dL) 0.92 Hematology WBC (4.5 - 11.5 K/uL) 6.9 RBC (4.50 - 5.90 M/uL) 3.66 Hgb (13.5 - 17.5 gm/dL) 8.7 Hct (41.0 - 53.0 %) 27.3 MCV (80 - 100 fL) 75 MCH (26 - 34 pg) 24 RDW (11.6 - 14.8 %) 17.6 Neut % (Auto) (50 - 75 %) 73.7 Lymph % (Auto) (25 - 40 %) 19.1 [place] % (Auto) (3 - 14 %) 4.9 Eos % (Auto) (0 - 4 %) 1.7 Baso % (Auto) (0 - 2 %) 0.6 Plt Count, EDTA (150 - 400 K/uL) 246 PUBS MCHC (31 - 37 g/dL) 32 Assessment and Plan Problem List 1. DKA (diabetic ketoacidoses) Plan Resolved off insulin drip, on long acting insulin chaged diet to ADA, also sliding scale 2. Cellulitis of left hand Plan Start Vancomycin IV 3. Diarrhea Plan send stool for work up 4. Anemia Status Chronic Onset Date Unknown Plan check stool for occult blood and check Iron profile anbd B12, folic acid
[2016-10-18] VITALS (21 sets, daily range): BP systolic 124–168; BP diastolic 66–93
--- NOTE | 2016-10-18 06:54 | Progress Note ---
Subjective General his is a 26 year old male with a pmh of diabetes type 1, opioid abuse and homeless. Patient seen earlier today at [facility] ER. Patient is limited resources and therefore his insulins are not available on a consistent basis. [facility] Patient was found there to have a blood sugar of 1000 1200. However, not seemingly in ketoacidosis. Bicarbonate was in the 20s. Undetermined ketones. Patient appeared to be dehydrated and unkept. Due to limitations in [facility]. Patient was subsequently transferred to [facility] for inpatient care. Patient is transfered to the [facility] CCU on insulin drip. Upon arrival, patient had blood sugars of 320. Insulin rate of 10. Patient was admitted with hyper glycemia, hyper ketosis and dehydration. Patient is Swelling and pain in left hand improved dramatically, still has chills, diarrhea improved significantly, no nausea or vomiting, has chronic abdominal pain Review of system: GI: Negative for nausea or vomiting diarrhea improved Constitutional: No fever as some chills Physical Exam Vital Signs / I&Os Vital Signs Date Time Temp Pulse Resp B/P Pulse O2 O2 Flow FiO2 Ox Delivery Rate 10/18 0614 105 16 159/90 98 Room Air 10/18 0500 99.3 96 20 143/79 99 10/18 0413 115 12 156/88 98 10/18 0300 98 20 156/91 99 10/18 0200 109 14 168/93 98 Room Air 10/18 0118 101 12 150/85 10/18 0011 101 18 159/92 10/17 2321 102 16 156/86 10/17 2206 109 20 147/81 10/17 2126 100.6 10/17 2100 108 16 168/89 10/17 2027 Room Air 10/17 2010 101 20 163/90 10/17 1900 101.7 103 18 178/99 98 10/17 1816 99.0 112 24 154/89 10/17 1715 102 20 156/86 10/17 1611 104 11 152/99 10/17 1509 97 12 164/94 10/17 1400 97 18 167/102 10/17 1300 99.3 99 17 152/82 98 Room Air 10/17 1200 100 12 170/107 Room Air 10/17 1145 98.4 10/17 1000 94 15 145/91 Room Air 10/17 0900 100 16 162/96 Room Air 10/17 0800 98 10 152/95 Room Air 10/17 0700 94 94 146/88 99 Room Air I&O 10/18 0000 10/17 1600 10/17 0800 Intake Total 2742 2120 1053 Output Total 250 1425 950 Balance 2492 695 103 General Appearance No acute distress Lungs Clear to auscultation Neck Supple Cardiovascular Regular rate and rhythm, Normal S1 and S2, No murmurs, gallops, rubs Abdomen Normal bowel sounds, Soft, No tenderness Extremities No edema Psych/Mental Status Mental status normal LAB Results Laboratory Tests 10/18 10/18 10/18 0810 0530 0530 Chemistry Plasma Sodium (136 - 145 mmol/L) 137 Plasma Potassium (3.5 - 5.1 mmol/L) 3.9 Plasma Chloride (98 - 107 mmol/L) 105 CO2 (Enzymatic) (21 - 32 mmol/L) 22 BUN (7 - 18 mg/dL) 15 Creatinine (0.6 - 1.3 mg/dL) 0.7 Est GFR ( Amer) (mL/min) >60 Est GFR (Non-Af Amer) (mL/min) >60 Glucose (70 - 110 mg/dL) 194 Plasma Calcium (8.5 - 10.1 mg/dL) 7.6 Total Bilirubin (0.0 - 1.0 mg/dL) 0.2 Direct Bilirubin (0 - 0.3 mg/dL) 0.1 AST (15 - 37 U/L) 16 ALT (12 - 78 U/L) 19 Alkaline Phosphatase (46 - 116 U/L) 88 Total Protein (6.4 - 8.2 g/dL) 5.7 Albumin (3.3 - 5.0 g/dL) 2.4 Hematology WBC (4.5 - 11.5 K/uL) 4.9 RBC (4.50 - 5.90 M/uL) 3.56 Hgb (13.5 - 17.5 gm/dL) 8.5 Hct (41.0 - 53.0 %) 26.2 MCV (80 - 100 fL) 74 MCH (26 - 34 pg) 24 RDW (11.6 - 14.8 %) 18.1 Neut % (Auto) (50 - 75 %) 79.8 Lymph % (Auto) (25 - 40 %) 14.0 [place] % (Auto) (3 - 14 %) 5.6 Eos % (Auto) (0 - 4 %) 0.2 Baso % (Auto) (0 - 2 %) 0.4 Plt Count, EDTA (150 - 400 K/uL) 196 PUBS MCHC (31 - 37 g/dL) 33 Toxicology Vancomycin Trough Pending Assessment and Plan Problem List 1. Cellulitis of left hand Plan continue Vanco for one more day, switch to oral abx tomorrow and discharge home 2. Diarrhea Plan much better, stool work up negative so far 3. Diabetes Plan controlled now 4. Anemia Status Chronic Onset Date Unknown Plan stable
[2016-10-19] VITALS (10 sets, daily range): BP systolic 132–150; BP diastolic 66–94
[2016-10-19] MEDS ORDERED: LISINOPRIL5 MG PO (06:54)
[2016-10-19] MEDS ORDERED: METHADONE HCL10 MG PO (06:55)
[2016-10-19] MEDS ORDERED: [UNRECOGNIZED DRUG - SUPPLY] SC (06:55)
[2016-10-19] MEDS ORDERED: PROTONIX40 M1 IV (06:55)
[2016-10-19] MEDS ORDERED: [UNRECOGNIZED DRUG - SUPPLY] SC (06:55)
[2016-10-19] MEDS ORDERED: CLEOCIN300 MG PO (06:55)
--- NOTE | 2016-10-19 07:25 | DISCHARGE SUMMARY ---
ADMIT DATE: 10/16/2016 DISCHARGE DATE: 10/19/2016 DISCHARGE DIAGNOSES: 1. Hyperosmolar hyperglycemia. 2. Cellulitis of the left hand. 3. Diarrhea. 4. Diabetes. 5. Anemia. BRIEF HISTORY: This is a 26-year-old white male who was admitted on 10/15/2016. The patient is homeless and presented to the [facility], apparently had run out of insulin. At [facility], they found that blood sugar was up 1000 or 1200 without ketoacidosis and his bicarbonate was 20. The patient was dehydrated though, and because there was no bed available, the patient was transferred to the [facility]. He was not eating well. He had some productive cough. He has a history of opiate abuse. He is homeless. The patient also had recent nausea and vomiting before the admission. Also abdominal pain, which is chronic. HOSPITAL COURSE: The patient was admitted to the ICU and started on IV insulin drip with 10 units per hour and he was titrated down over 2-3 days. At one time, he had to start back on IV insulin again, but all were titrated down and was put on Lantus insulin, gradually increased to 20 units b.i.d. The patient developed cellulitis at the same time a few times a few days ago on the left hand and also diarrhea at that time, so the patient was put on vancomycin and a stool was sent for the workup which was unremarkable. Everything is improved now. Blood sugar is well controlled actually, this morning it was 50. I had adjusted Lantus insulin last night to 15 from 20, but I am not concerned about blood sugar of 50 because when the patient goes home, his diet will change. I will switch from vancomycin to clindamycin as an outpatient for continuing of 7 more days of antibiotics. Diarrhea has resolved. The patient has no nausea, no vomiting. Able to eat and drink. Still has chronic abdominal pain and ready to be discharged. PHYSICAL EXAMINATION: VITAL SIGNS: Pulse 91, respirations 15, blood pressure 137/81, and oxygen saturation 100% on room. The patient seems afebrile. LUNGS: Clear to auscultation. No rhonchi or wheezing. HEART: Regular S1, S2. No murmur. No S3. ABDOMEN: Soft. The patient has mild tenderness. Bowel sounds are positive. EXTREMITIES: No edema. LAB/IMAGING: Today, white blood count is 4.9, hemoglobin 8.9, which is higher than yesterday, hematocrit 27.5, and platelet count is 162. Sodium is 141, potassium is 4, chloride is 108, CO2 is 25, BUN 15, creatinine 0.7, glucose is 50. It was 119 for the previous shift and right now is 74. Calcium is 7.6. DISCHARGE INSTRUCTIONS/MEDICATIONS: 1. Disposition: The patient will be discharged home to follow up with his primary care physician as an outpatient within 1 week. 2. Insulin Lantus will be 15 units at bedtime and 20 units in the morning. 3. The patient also will be on clindamycin 300 mg every 6 hours for 7 more days. 4. Methadone 20 mg twice a day. 5. Protonix 40 mg daily. 6. Lisinopril 5 mg daily. The patient will be on Lantus insulin, as we mentioned, 15 units at bedtime and 20 units in the morning and also NovoLog sliding scale and this too was going to be provided with our pharmacy in pen form for a while, so patient to get to see his primary care physician. No syringes are prescribed because of the history of drug abuse. The patient also will be on clindamycin 300 mg 3 times a day for 7 more days.
== END 2016-10-19 10:20 | disposition home or self-care (01) | DRG 420 ==
LOC: CC SRH 17:28
PROVIDERS: ADMIT Internal Medicine
PROC: 02HV33Z Insertion of Infusion Device into Superior Vena Cava, Percutaneous Approach (ICD-10-PCS; principal; 2016-10-16)
DX: E10.65 Type 1 diabetes mellitus with hyperglycemia (principal); E87.0 Hyperosmolality and hypernatremia; E86.0 Dehydration; L03.114 Cellulitis of left upper limb; F17.210 Nicotine dependence, cigarettes, uncomplicated; Z59.0 Homelessness; T38.3X6A Underdosing of insulin and oral hypoglycemic [antidiabetic] drugs, initial encounter; Z91.120 Patient's intentional underdosing of medication regimen due to financial hardship; D64.9 Anemia, unspecified; R19.7 Diarrhea, unspecified; F11.10 Opioid abuse, uncomplicated
CPT/HCPCS: 29246; 29247; 29251; 81526; 90004; 90006; 90047; 90065; 90074; 90098; 90100; 90101; 90112; 90124; 90301; 90455; 90648; 91286; 91504; 91505; 91583; 91672; 92031; 92132; 92530; 92652; 92668; 92670; 92690; 92710; 92720; 92740; 92755; 92760; 92761; 92762; 92763; 92764; 92765; 92766; 92767; 93004; 93140; 95059; 99262